=== PATIENT | female | born 2000 | race Hispanic/Latino ===

== ENCOUNTER 2024-12-23 10:51 | Inpatient (IN) | payer OTHER ==
[2024-12-23] MEDS ORDERED: Diphenoxylate HCl/Atropine Tablet PO PRN ×2 (18:58)
[2024-12-23] MEDS ORDERED: hydrALAZINE 20 MG/ML VIAL SLOW IVP PRN (18:58)
[2024-12-23] MEDS ORDERED: Ibuprofen 800 MG TAB PO PRN (18:58)
[2024-12-23] MEDS ORDERED: Lidocaine 1% (PF) 30 ML VIAL SC PRN (18:58)
[2024-12-23] MEDS ORDERED: Carboprost 250 MCG/ML AMP IM PRN (18:58)
[2024-12-23] MEDS ORDERED: Ondansetron PF 4 MG/2 ML Vial IVP PRN (18:58)
[2024-12-23] MEDS ORDERED: Tranexamic Acid 1,000 MG/10 ML VIAL IVP PRN (18:58)
[2024-12-23] MEDS ORDERED: Oxytocin 30 units/NS 500 ML 500 ML IV SCH (19:00)
[2024-12-23 20:03] LABS: Hematocrit 31.7 % (34.9-44.5); Hemoglobin 10.5 g/dL (12.0-15.5); Mean Corpuscular Hemoglobin 27.3 pg (27.0-33.0); Mean Corpuscular Volume 82.6 fL (81.6-98.3); Platelet Count 311 10x3/uL (150-450); Red Blood Cell (RBC) Count 3.84 10x6/uL (3.90-5.03); White Blood Cell (WBC) Count 12.71 10x3/uL (3.5-10.5)
[2024-12-23 20:37] LABS: Syphilis Antibody Index 0.13 S/CO (<1.00 Non-Reactive)
[2024-12-23 20:38] LABS: Hep B Surf Ag - L&D Non-Reactive S/CO (NonReactive)
[2024-12-23 21:46] VITALS: BMI 47.9
[2024-12-24] MEDS: fentaNYL/Ropivacaine Epidural 100 ML ONE (11:03)
[2024-12-24] MEDS ORDERED: diphenhydrAMINE 50 MG/ML VIAL IVP PRN (11:11)
[2024-12-24] MEDS ORDERED: Acetaminophen 325 MG TAB PO PRN (11:11)
[2024-12-24] MEDS ORDERED: Ondansetron PF 4 MG/2 ML Vial IVP PRN ×2 (11:11→16:37)
[2024-12-24] MEDS ORDERED: fentaNYL 2 mcg/Ropivacaine 0.2% Epidural 100 ML CADD EPIDURAL SCH (11:15)
[2024-12-24] MEDS ORDERED: Communication Order-Pharmacy FS SCH (11:15)
[2024-12-24] MEDS: Oxytocin 30 units/NS 500 ML 500 ML IV SCH (16:25)
[2024-12-24] MEDS ORDERED: hydrALAZINE 20 MG/ML VIAL SLOW IVP PRN (16:37)
[2024-12-24] MEDS ORDERED: Preparation H Ointment 28 GM TUBE PR PRN (16:37)
[2024-12-24] MEDS ORDERED: Lanolin Ointment 7 GM TUBE TOP PRN (16:37)
[2024-12-24] MEDS ORDERED: Methylergonovine 0.2 MG/ML VIAL IM PRN (16:37)
[2024-12-24] MEDS ORDERED: Milk Of Magnesia 30 ML UDCUP PO PRN (16:37)
[2024-12-24] MEDS ORDERED: Measles/Mumps/Rubella 10 MCG/0.5 ML VIAL SC ONE (16:37)
[2024-12-24] MEDS ORDERED: Boostrix 0.5 ML (Tdap) VIAL (>/=7 yrs of age) IM ONE (16:37)
[2024-12-24] MEDS ORDERED: Bisacodyl 10 MG SUPP PR PRN (16:37)
[2024-12-24] MEDS: Methylergonovine 0.2 MG/ML VIAL IM PRN (16:39)
[2024-12-24] MEDS ORDERED: Oxytocin 30 units/NS 500 ML 500 ML IV SCH (16:45)
[2024-12-24 16:51] LABS: Analyzer IN Cardio CS NICU; Critical Notified By: Udy, RRT; Critical Notified Whom: Shanna, RN L&D; RapidComm Collect By Shanna, RN L&D
[2024-12-24 16:53] LABS: Analyzer IN Cardio CS NICU; Critical Notified By: Udy, RRT; Critical Notified Whom: Shanna, RN L&D; RapidComm Collect By Shanna, RN L&D; pH (Cord, venous) 7.243 (7.250-7.350)
[2024-12-24] MEDS: Ibuprofen 800 MG TAB PO SCH (21:02)
[2024-12-24] MEDS: Benzocaine-Menthol 82.5 ML CAN TOP PRN (21:02)
[2024-12-24] MEDS: Methylergonovine 0.2 MG/ML VIAL ONE (21:03)
[2024-12-24] MEDS: Ferrous Sulfate 325 MG TAB PO SCH (21:03)
[2024-12-26 08:40] VITALS: BP 114/57; TEMP 98
== END 2024-12-26 12:50 | disposition home or self-care (01) | DRG 807 ==
LOC: CSHLD 17:53 → CSHPP 12-24 19:50
PROVIDERS: ADMIT Family Medicine; ATTEND Family Medicine
PROC: 10H073Z Insertion of Monitoring Electrode into Products of Conception, Via Natural or Artificial Opening (ICD-10-PCS; principal; 2024-12-24)
PROC: 10D07Z6 Extraction of Products of Conception, Vacuum, Via Natural or Artificial Opening (ICD-10-PCS; principal; 2024-12-24)
PROC: 10H07YZ Insertion of Other Device into Products of Conception, Via Natural or Artificial Opening (ICD-10-PCS; principal; 2024-12-24)
PROC: 10907ZC Drainage of Amniotic Fluid, Therapeutic from Products of Conception, Via Natural or Artificial Opening (ICD-10-PCS; principal; 2024-12-24)
PROC: 0HQ9XZZ Repair Perineum Skin, External Approach (ICD-10-PCS; principal; 2024-12-24)
DX: O99.214 Obesity complicating childbirth (principal); Z37.0 Single live birth; E66.813 Obesity, class 3; O66.0 Obstructed labor due to shoulder dystocia; O70.0 First degree perineal laceration during delivery; O76 Abnormality in fetal heart rate and rhythm complicating labor and delivery
CPT/HCPCS: 51702; 82805; 85027; 86780; 86850; 86900; 86901; 87340; J2210; J2590